=== PATIENT | male | born 1985 | race Caucasian/White ===

== ENCOUNTER 2019-03-25 10:49 | Emergency (ER) | payer BC ==
[~2019-03-25] VITALS: Ht 170.2 cm; Wt 83.9 kg
== END 2019-03-25 14:54 | disposition home or self-care (01) ==
LOC: ER 10:49
DX: H61.22 Impacted cerumen, left ear (principal); H92.02 Otalgia, left ear

== ENCOUNTER 2019-03-26 08:53 | Emergency (ER) | payer BC ==
[~2019-03-26] VITALS: Ht 170.2 cm; Wt 83.9 kg
== END 2019-03-26 11:34 | disposition home or self-care (01) ==
LOC: ER 08:53
DX: H61.22 Impacted cerumen, left ear (principal)